=== PATIENT | female | born 1960 | race African-American/Black ===

== ENCOUNTER → 2019-01-09 | Outpatient (CLI) | payer BC | LOC: BC 09:16 | DX: Z12.31 Encounter for screening mammogram for malignant neoplasm of breast (principal) ==

== ENCOUNTER → 2020-07-15 | Outpatient (CLI) | payer BC, OTHER | LOC: BC 15:24 | PROVIDERS: ATTEND Family Medicine | DX: Z12.31 Encounter for screening mammogram for malignant neoplasm of breast (principal); N60.82 Other benign mammary dysplasias of left breast; N60.81 Other benign mammary dysplasias of right breast ==